=== PATIENT | female | born 1955 | race American Indian/Alaskan Native ===

== ENCOUNTER 2016-08-15 17:54 | Observation (INO) | payer MEDICAID ==
[2016-08-15 18:41] LABS: URINE MUCUS NONE SEEN (Up to 25%); URINE SQUAMOUS EPITHELIAL CELL NONE SEEN (<= 15/hpf)
[2016-08-15] MEDS ORDERED: ONDANSETRON ODT 4 MG TAB.RAPDIS ONE (18:48)
[2016-08-15 18:51] LABS: URINE APPEARANCE TURBID; URINE COLOR PALE YELLOW; URINE SPECIFIC GRAVITY > OR = 1.030 (0.001-1.035)
[2016-08-15 18:52] LABS: URINE BILIRUBIN NEGATIVE (NEGATIVE); URINE BLOOD 50 Ery/uL (2+) (NEGATIVE); URINE GLUCOSE 500mg/dL (2+) (NEGATIVE); URINE KETONE 10mg/dL (1+) (NEGATIVE); URINE LEUKOCYTE ESTERASE TRACE (NEGATIVE); URINE NITRITE NEGATIVE (NEGATIVE); URINE PH 5.5 (5-7); URINE PROTEIN 300mg/dL (3+) (NEG - TRACE); URINE RBC 0-5/hpf (0-5/hpf); URINE SPERM NONE SEEN; URINE UROBILINOGEN 0.2mg/dL (Normal) (NEG-1mg/dL)
[2016-08-15 19:14] LABS: ALBUMIN 4.3 g/dL (3.5-5.0); ALKALINE PHOSPHATASE 131 U/L (38-126); ALT 45 U/L (9-52); AST 28 U/L (14-36); BILIRUBIN, DIRECT 0.4 mg/dL (0.0-0.4); BILIRUBIN, TOTAL 0.6 mg/dL (0.2-1.3); BLOOD UREA NITROGEN 14 mg/dL (7-17); CALCIUM 9.5 mg/dL (8.4-10.2); CHLORIDE 101 mmol/L (98-107); CREATININE 0.5 mg/dL (0.5-1.0); EST GLOMERULAR FILTRATION RATE > 60 mL/min; LIPASE 110 U/L (23-300); POTASSIUM 3.6 mmol/L (3.5-5.1); SODIUM 139 mmol/L (137-145); TOTAL PROTEIN 8.1 g/dL (6.3-8.2)
[2016-08-15] MEDS ORDERED: MORPHINE SULFATE 4 MG/ML SYR ONE (19:14)
[2016-08-15] MEDS ORDERED: LABETALOL HCL 100 MG/20 ML VIAL IV ONE (19:14)
[2016-08-15] MEDS ORDERED: INSULIN REGULAR HUMAN 100 UNITS/ML ML ONE (19:16)
[2016-08-15 19:37] LABS: HEMATOCRIT 48.8 % (36.0-48.0); HEMOGLOBIN 15.3 g/dL (12.0-16.0); MEAN CORPUS. HGB CONCENTRATION 31.3 g/dL (32.0-36.0); MEAN CORPUSCULAR HEMOGLOBIN 27.6 pg (29.0-35.0); RED BLOOD COUNT 5.52 X 10^6uL (4.20-6.10); WHITE BLOOD COUNT 20.1 X 10^3uL (3.9-10.7)
[2016-08-15 19:38] LABS: BAND% (Manual) 0 % (0.0-1.0); BASOPHIL % (Manual) 0 % (0.0-2.0); EOSINOPHIL % (Manual) 1 % (0.0-6.0); LYMPHOCYTE % (Manual) 7 % (20.0-40.0); MONOCYTE % (Manual) 7 % (2.0-10.0); NEUTROPHIL % (Manual) 86 % (54.0-75.0); PLATELET COUNT 230 X 10^3uL (130-440)
[2016-08-15 19:39] LABS: BETA HYDROXYBUTYRATE 1.08 mmol/L (<0.40); PLATELET ESTIMATE ADEQUATE
[2016-08-15 19:40] LABS: BURR CELLS PRESENT
[2016-08-15] MEDS ORDERED: CEFTRIAXONE SODIUM 1,000 MG/10 ML VIAL ONE (19:40)
[2016-08-15] MEDS ORDERED: NORMAL SALINE 100 ML IV ONE (19:41)
[2016-08-15] MEDS ORDERED: HOME MEDICATION LIST NEEDED 1 EA EACH MISC ONE (19:45)
[2016-08-15 19:49] LABS: GLUCOSE 346 mg/dL (70-100)
--- NOTE | 2016-08-15 20:17 | ER NURSING DOCUMENTATION ---
Nurse's Notes [facility] Name:Chioma Marsh Age:60 yrs Sex:Female :1955 Arrival Date:08/15/2016 Time:17:54 Bed4 Private MD:[facility] Diagnosis:Urosepsis;Hyperglycemia;Dehydration Presentation: 08/15 18:15 Acuity: JUANITO 3 sj 18:30 Presenting complaint: Patient states: Nausea and vomiting x 2 hours. Has not attempted sj to drink fluids. Also mid-abdominal pain. Denies diarrhea. People living her household have vomiting and diarrhea. Transition of care: Home. 18:30 Method Of Arrival: Private Vehicle sj Triage Assessment: 18:33 General: Appears comfortable, well nourished, well groomed, Behavior is cooperative, sj pleasant. Pain: Complains of pain in generalized mid-abdominal Pain currently is 6 out of 10 on a pain scale. Neuro: Level of Consciousness is awake, alert, Oriented to person, place, time, event. Cardiovascular: Capillary refill < 3 seconds. Respiratory: Airway is patent Respiratory effort is even, unlabored, Respiratory pattern is regular. GI: Reports nausea, vomiting. Historical: - Allergies: No known drug Allergies; - Home Meds: 1. long acting insulin 2. short-acting insulin 3. [place] Oral - PMHx: Diabetes - IDDM; CHRONIC PAIN; kidney dysfunction; peripheral neuropathy; - PSHx: several back surgeries; three kidney surgeries; - Tetanus: < 10 years. - Ebola Screening: : Patient negative for fever greater than or equal to 101.5 degrees Fahrenheit, and additional compatible Ebola Virus Disease symptoms. Patient denies exposure to infectious person. Patient denies travel to an Ebola-affected area in the 21 days before illness onset. No symptoms or risks identified at this time. . - Immunization history: Pneumococcal vaccine is not up to date, Patient has never been vaccinated Flu Vaccine None. - Social history: Smoking status: Patient states was never smoker of tobacco. Patient/guardian denies using alcohol, marijuana. Screenin:00 Infectious Disease Risk None. Abuse screen: Denies threats or abuse. Denies injuries sj from another. Nutritional screening: denies eating a diabetic diet, ate candy this evening.. Assessment: 20:13 GI: Abdomen is obese, Abd is soft Abdomen is tender to palpation X 4 quads. Reports sj lower abdominal pain, upper abdominal pain, nausea, vomiting. 08/16 10:17 Reassessment: follow up urine results received from the lab; results called to Zachery carpio on M/S and she was aware of urine result and was preparing to contact attending physician; Diana aware that patient received rocephin IVPB in ER and she stated patient had not yet received additional antibiotics. Vital Signs: 08/15 18:15 BP 186 / 108; Pulse 115; Resp 20; Temp 98.0; Pulse Ox 95% on R/A; Weight 97.52 kg; sj Height 5 ft. 5 in. (165.10 cm); Pain 6/10; 18:40 BP 174 / 113; Pulse 112; Pulse Ox 92% ; sj 19:09 BP 179 / 109; Pulse 105; Pulse Ox 94% ; sj 19:12 BP 183 / 98; Pulse 107; Pulse Ox 93% ; sj 19:19 BP 181 / 103; Pulse 99; Pulse Ox 93% ; sj 19:50 BP 174 / 97; Pulse 99; Pulse Ox 94% ; sj 18:15 Body Mass Index 35.78 (97.52 kg, 165.10 cm) ED Course: 17:55 Patient arrived in ED. ama 17:56 [facility] is Private Physician. ama 18:22 Elza Xiao is Primary Nurse. sj 18:23 Triage completed. 18:37 Usman Rice MD is Attending Physician. 18:45 Notified ED Physician of patient's arrival and chief complaint. Dr. Rice notified. sj 18:59 Valuables Patient has correct armband on for positive identification. Bed in low sj position. Call light in reach. Side rails up X 1. Pulse Ox - RN Monitoring Only. Lights dimmed. Verbal reassurance given. Warm blanket given. 19:00 NIBP On - RN Monitoring Only. sj 19:00 Inserted peripheral IV: 22 gauge in right hand and blood collected. Oxygen Oxygen sj administration via nasal cannula @ 2L/min. 19:47 EKG done per protocol. Performed by ED Staff. sj 19:58 Juvencio Contreras MD is Admitting Physician. jm 20:19 EKG attached sj Administered Medications: 17:45 Drug: Zofran 4 mg; Route: PO; sj 19:20 Follow up: Response: Nausea is decreased sj 19:00 Drug: NS 0.9% 1000 ml; Route: IV; Rate: bolus; Site: right hand; sj 20:11 Follow up: IV Status: Completed infusion; IV Intake: 1000ml sj 19:10 Drug: morphine 4 mg; Route: IVP; Site: right hand; sj 19:57 Follow up: Response: Pain is decreased sj 19:13 Drug: Labetalol 10 mg; Route: IVP; Infused Over: 2 mins; Site: right hand; sj 19:57 Follow up: Response: Blood pressure is lowered sj 19:13 Drug: Insulin Regular Human 5 units; Route: IVP; Site: right hand; sj 20:10 Follow up: Response: No adverse reaction sj 19:17 Drug: Insulin Regular Human 5 units; Route: Sub-Q; Site: left upper arm; sj 20:11 Follow up: Response: No adverse reaction sj 19:45 Drug: Rocephin 1 grams; Route: IVPB; Site: right hand; sj 20:11 Follow up: IV Status: Completed infusion; IV Intake: 100ml Point of Care Testing: Blood Glucose: 18:35 Blood Glucose: 353 mg/dL; sj 19:30 Blood Glucose: 281 mg/dL; sj Urine Dip: 19:47 pH: 5.5; ; Specific [place]: 1.030; Ketones: Small; Glucose: Positive; Protein: sj Positive (++); Leukocytes: Trace; Nitrite: Negative ; Blood: Moderate (++); Bilirubin: Negative ; Urobilinogen: Normal Ranges: Intake: 20:11 IV: 1000ml; Total: 1000ml. sj 20:11 IV: 100ml; Total: 1100ml. Outcome: 19:58 Decision to Admit by Provider. fernando 20:17 Admitted to Med/surg accompanied by nurse, with oxygen. sj 20:17 Condition: improved 20:17 Report given to Dinh SCHMID 20:17 Instructed on need to admit 20:18 Patient left the ED. Signatures: Lisa Ruff, RN Usman Poe MD MD jm Averdick, Andrew, Elza Rocha
--- NOTE | 2016-08-15 20:17 | ER PHYSICIAN DOCUMENTATION ---
Physician Documentation [facility] Name:Chioma Marsh Age:60 yrs Sex:Female :1955 Arrival Date:08/15/2016 Time:17:54 Bed4 Private MD:[facility] ED PhysicianUsman Rice Disposition: 08/15/16 19:58 Admit ordered for Juvencio Contreras. Preliminary diagnosis are Urosepsis, Hyperglycemia, Dehydration. - Bed requested for Medical/Surgical. - Condition is Fair. - Problem is new. - Symptoms have improved. 23 HR OBS Yes HPI: 08/15 19:32 This 60 yrs old Unknown Female presents to ER via Private Vehicle with complaints of jm Nausea/Vomiting. 19:32 The patient presents to the emergency department with nausea, with vomiting, with jm associated abdominal pain, of the abdomen diffusely. Onset: The symptom(s)/episode began/occurred yesterday, and became worse today. Possible causes: unknown. Associated signs and symptoms: Pertinent positives: vomiting. Severity of symptoms: in the emergency department the symptoms are unchanged. The patient has experienced similar episodes in the past. The patient has not recently seen a physician. 60 yo F w hx of uncontrolled DM here for elevated sugars, abd pain, and vomiting. Pt feels awful. . Historical: - Allergies: No known drug Allergies; - Home Meds: 1. long acting insulin 2. short-acting insulin 3. [place] Oral - PMHx: Diabetes - IDDM; CHRONIC PAIN; kidney dysfunction; peripheral neuropathy; - PSHx: several back surgeries; three kidney surgeries; - Tetanus: < 10 years. - Ebola Screening: : Patient negative for fever greater than or equal to 101.5 degrees Fahrenheit, and additional compatible Ebola Virus Disease symptoms. Patient denies exposure to infectious person. Patient denies travel to an Ebola-affected area in the 21 days before illness onset. No symptoms or risks identified at this time. . - Immunization history: Pneumococcal vaccine is not up to date, Patient has never been vaccinated Flu Vaccine None. - Social history: Smoking status: Patient states was never smoker of tobacco. Patient/guardian denies using alcohol, marijuana. ROS: 19:33 Constitutional: Negative for fatigue, malaise. jm 19:33 ENT: Negative for sinus congestion, sinus pain, sore throat. 19:33 Neck: Negative for tenderness, bony tenderness. 19:33 Cardiovascular: Negative for chest pain. 19:33 Respiratory: Negative for cough, shortness of breath. 19:33 Abdomen/GI: Positive for abdominal pain, nausea, vomiting, Negative for diarrhea. 19:33 Back: Negative for injury or acute deformity, decreased range of motion. 19:33 : Positive for urinary symptoms, pelvic pain. 19:33 Skin: Negative for rash. 19:33 Neuro: Positive for gait disturbance, weakness. 19:33 Psych: Negative for anxiety, depression, drug dependence, alcohol dependence. 19:33 All other systems are negative. Exam: 19:34 Constitutional: The patient appears alert, awake, obese. jm 19:34 Eyes: Periorbital structures: appear normal, Extraocular movements: no acute changes. 19:34 ENT: Mouth: Oral mucosa: dry. 19:34 Cardiovascular: Rate: tachycardic, Rhythm: regular. 19:34 Respiratory: Respirations: normal, Breath sounds: are normal. 19:34 Abdomen/GI: Bowel sounds: normal, Palpation: moderate abdominal tenderness, in all quadrants. 19:34 Back: pain, that is very mild, CVA tenderness, that is mild, is noted bilaterally. 19:34 : CVA tenderness, that is mild, Bladder: tenderness, that is mild. 19:34 Skin: Appearance: Color: pink, no rash present. 19:34 Neuro: Mentation: is normal, Memory: is normal. 19:34 Psych: Behavior/mood is pleasant, cooperative, Affect is calm. Vital Signs: 18:15 BP 186 / 108; Pulse 115; Resp 20; Temp 98.0; Pulse Ox 95% on R/A; Weight 97.52 kg; sj Height 5 ft. 5 in. (165.10 cm); Pain 6/10; 18:40 BP 174 / 113; Pulse 112; Pulse Ox 92% ; sj 19:09 BP 179 / 109; Pulse 105; Pulse Ox 94% ; sj 19:12 BP 183 / 98; Pulse 107; Pulse Ox 93% ; sj 19:19 BP 181 / 103; Pulse 99; Pulse Ox 93% ; sj 19:50 BP 174 / 97; Pulse 99; Pulse Ox 94% ; sj 18:15 Body Mass Index 35.78 (97.52 kg, 165.10 cm) MDM: 18:37 Patient medically screened. fernando 19:35 Differential diagnosis: viral gastroenteritis, DKA, sepsis. Data reviewed: vital signs, jm nurses notes. 19:45 Data reviewed: lab test result(s), EKG, and as a result, I will admit patient. fernando Counseling: I had a detailed discussion with the patient and/or guardian regarding: the historical points, exam findings, and any diagnostic results supporting the discharge/admit diagnosis, lab results, the need for further work-up and treatment in the hospital. Medication response: The patient's symptoms have improved, zofran. Physician consultation: Juvencio Contreras MD regarding admission, and will see patient tomorrow. Admission orders: after a detailed discussion of the patient's condition and case, the admit orders are written by me. 19:57 ED course: Pt w urosepsis based on SIRS criteria. Pt given Rocephin and IVF. DR. fernando Noland agrees on admission and will see in the AM. . 20:19 EKG attached 08/15 18:54 Order name: UA W/ MICRO -CULTURE IF IND; Complete Time: 18:56 [facility] 08/15 19:18 Order name: BASIC METABOLIC PANEL [facility] 08/15 19:18 Order name: HEPATIC PANEL [facility] 08/15 19:18 Order name: LIPASE [facility] 08/15 19:40 Order name: BETA HYDROXYBUTYRATE [facility] 08/15 19:42 Order name: CBC W/ MANUAL DIFFERENTIAL [facility] 08/15 18:57 Order name: Pulse Ox Continuous; Complete Time: 19:52 08/15 19:58 Order name: Accucheck; Complete Time: 20:12 08/15 20:15 Order name: EKG - 12 Lead; Complete Time: 20:15 Dispensed Medications: 17:45 Drug: Zofran 4 mg; Route: PO; sj 19:20 Follow up: Response: Nausea is decreased sj 19:00 Drug: NS 0.9% 1000 ml; Route: IV; Rate: bolus; Site: right hand; sj 20:11 Follow up: IV Status: Completed infusion; IV Intake: 1000ml sj 19:10 Drug: morphine 4 mg; Route: IVP; Site: right hand; sj 19:57 Follow up: Response: Pain is decreased sj 19:13 Drug: Labetalol 10 mg; Route: IVP; Infused Over: 2 mins; Site: right hand; sj 19:57 Follow up: Response: Blood pressure is lowered sj 19:13 Drug: Insulin Regular Human 5 units; Route: IVP; Site: right hand; sj 20:10 Follow up: Response: No adverse reaction sj 19:17 Drug: Insulin Regular Human 5 units; Route: Sub-Q; Site: left upper arm; sj 20:11 Follow up: Response: No adverse reaction sj 19:45 Drug: Rocephin 1 grams; Route: IVPB; Site: right hand; sj 20:11 Follow up: IV Status: Completed infusion; IV Intake: 100ml Point of Care Testing: Blood Glucose: 18:35 Blood Glucose: 353 mg/dL; sj 19:30 Blood Glucose: 281 mg/dL; sj Urine Dip: 19:47 pH: 5.5; ; Specific [place]: 1.030; Ketones: Small; Glucose: Positive; Protein: sj Positive (++); Leukocytes: Trace; Nitrite: Negative ; Blood: Moderate (++); Bilirubin: Negative ; Urobilinogen: Normal Ranges: Critical Glucose Levels:Adult <50 mg/dl or >400 mg/dl <40 mg/dl or >180 mg/dl Signatures: Usman Rice MD MD jm Janzen, Sarah
[2016-08-15] MEDS: MORPHINE SULFATE 4 MG/ML SYR IV PRN (20:53)
[2016-08-15] MEDS: INSULIN LISPRO 100 UNIT/ML ML SUBCUT SCH (20:53)
[2016-08-15] MEDS: ONDANSETRON HCL 4 MG/2 ML VIAL IV PRN (20:54)
[2016-08-15] MEDS: POTASSIUM CHLORIDE/NS 1,000 ML IV SCH (20:54)
[2016-08-16] MEDS: ONDANSETRON HCL 4 MG/2 ML VIAL IV PRN ×3 (03:48→17:00)
[2016-08-16] MEDS: INSULIN LISPRO 100 UNIT/ML ML SUBCUT SCH ×4 (06:11→20:57)
[2016-08-16 06:41] LABS: BLOOD UREA NITROGEN 12 mg/dL (7-17); CALCIUM 8.3 mg/dL (8.4-10.2); CHLORIDE 104 mmol/L (98-107); CREATININE 0.5 mg/dL (0.5-1.0); EST GLOMERULAR FILTRATION RATE > 60 mL/min; POTASSIUM 3.8 mmol/L (3.5-5.1); SODIUM 139 mmol/L (137-145)
[2016-08-16 06:44] LABS: GLUCOSE 278 mg/dL (70-100)
[2016-08-16] MEDS: POTASSIUM CHLORIDE/NS 1,000 ML IV SCH ×2 (06:48→17:00)
[2016-08-16] MEDS: MORPHINE SULFATE 4 MG/ML SYR IV PRN (06:48)
[2016-08-16 06:50] LABS: BASOPHILS 0.1 % (0.0-2.0); EOSINOPHILS 0.7 % (0.0-6.0); EOSINOPHILS# 0.1 X 10^3uL (0.0-0.4); HEMATOCRIT 42.3 % (36.0-48.0); HEMOGLOBIN 14.1 g/dL (12.0-16.0); LYMPHOCYTES 4.3 % (20.0-40.0); LYMPHOCYTES# 0.5 X 10^3uL (0.8-3.8); MEAN CORPUS. HGB CONCENTRATION 33.3 g/dL (32.0-36.0); MEAN CORPUSCULAR HEMOGLOBIN 27.3 pg (29.0-35.0); MEAN PLATELET VOLUME 9.1 fL (7.4-10.4); MONOCYTES 2.1 % (2.0-10.0); MONOCYTES# 0.3 X 10^3uL (0.2-1.0); NEUTROPHILS# 11.5 X 10^3uL (2.6-6.7); PLATELET COUNT 268 X 10^3uL (130-440); RED BLOOD COUNT 5.16 X 10^6uL (4.20-6.10); RED CELL DISTRIBUTION WIDTH 13.4 % (11.5-14.5); WHITE BLOOD COUNT 12.4 X 10^3uL (3.9-10.7)
[2016-08-16 07:04] LABS: NEUTROPHILS 92.8 % (54.0-75.0)
[2016-08-16] MEDS: ACETAMINOPHEN 325 MG TABLET PO PRN (08:43)
[2016-08-16] MEDS: metFORMIN 500 MG TABLET PO SCH ×2 (11:49→20:59)
[2016-08-16] MEDS ORDERED: CEFTRIAXONE SODIUM 1,000 MG in NORMAL SALINE MINI-BAG+ 100 ML IV SCH (18:00)
[2016-08-16] MEDS ORDERED: CEFTRIAXONE SODIUM 1,000 MG/10 ML VIAL IV SCH (18:00)
[2016-08-16] MEDS: INSULIN GLARGINE,HUM.REC.ANLOG 100 UNITS/ML ML SUBCUT SCH (20:55)
[2016-08-16] MEDS: GABAPENTIN 300 MG CAPSULE PO SCH (20:57)
[2016-08-16] MEDS ORDERED: GABAPENTIN 100 MG CAPSULE PO SCH (21:00)
[2016-08-17] MEDS ORDERED: MAG-AL PLUS XS SUSP 30 ML UDC ONE (12:06)
[2016-08-17] MEDS ORDERED: MAG-AL PLUS XS SUSP 30 ML UDC PO PRN (12:23)
[2016-08-17 12:25] LABS: BLOOD UREA NITROGEN 6 mg/dL (7-17); CALCIUM 8.5 mg/dL (8.4-10.2); CHLORIDE 106 mmol/L (98-107); CREATININE 0.6 mg/dL (0.5-1.0); EST GLOMERULAR FILTRATION RATE > 60 mL/min; GLUCOSE 162 mg/dL (70-100); POTASSIUM 4.2 mmol/L (3.5-5.1); SODIUM 141 mmol/L (137-145)
[2016-08-17 12:30] LABS: BASOPHILS 0.4 % (0.0-2.0); EOSINOPHILS 4.6 % (0.0-6.0); EOSINOPHILS# 0.3 X 10^3uL (0.0-0.4); HEMATOCRIT 42.3 % (36.0-48.0); HEMOGLOBIN 14.1 g/dL (12.0-16.0); LYMPHOCYTES 21.5 % (20.0-40.0); LYMPHOCYTES# 1.4 X 10^3uL (0.8-3.8); MEAN CELL VOLUME 82.6 fL (84.0-102.0); MEAN CORPUS. HGB CONCENTRATION 33.3 g/dL (32.0-36.0); MEAN CORPUSCULAR HEMOGLOBIN 27.5 pg (29.0-35.0); MEAN PLATELET VOLUME 9.6 fL (7.4-10.4); MONOCYTES 8.6 % (2.0-10.0); MONOCYTES# 0.6 X 10^3uL (0.2-1.0); NEUTROPHILS# 4.2 X 10^3uL (2.6-6.7); PLATELET COUNT 266 X 10^3uL (130-440); RED BLOOD COUNT 5.12 X 10^6uL (4.20-6.10); RED CELL DISTRIBUTION WIDTH 13.7 % (11.5-14.5); WHITE BLOOD COUNT 6.5 X 10^3uL (3.9-10.7)
[2016-08-17 12:38] LABS: NEUTROPHILS 64.9 % (54.0-75.0)
[2016-08-17] MEDS: INSULIN LISPRO 100 UNIT/ML ML SUBCUT SCH ×4 (12:43→21:57)
[2016-08-17] MEDS: metFORMIN 500 MG TABLET PO SCH ×2 (12:43→21:07)
[2016-08-17] MEDS ORDERED: ONDANSETRON ODT 4 MG TAB.RAPDIS PO PRN (14:12)
--- NOTE | 2016-08-17 14:21 | PROGRESS NOTE: IM APSO ---
Assessment and Plan - Date of Encounter Date of Encounter: 08/17/16 (1) Pyelonephritis Status: Acute Assessment and plan: Clinically improved on IV rocephin. Will transition to PO Keflex to day and likely DC home tomorrow if remains stable. There was question of a possible kidney stone such as a staghorn as possible cause of UTI. She has responded clinically to this rx so will defer further w/u on stones as OP. Current Visit: Yes (2) Diabetes Status: Chronic Assessment and plan: Will cont current meds of metformin and insulin, 35 Lantus at hs and lispro on sliding scale. Current Visit: Yes - Time Spent With Patient Total time spent with greater than 50% in coordination of care (as documented) at patient's floor/unit and/or counseling patient: Greater than 35 minutes IM: PN Subjective General: fatigue, anxiety, depression, pain (chronic pain), fever, chills, no good appetite HEENT: no headache, no sore throat Cardiovascular: no chest pain Respiratory: no cough, no SOB Gastrointestinal: nausea, no abdominal pain, no vomiting, no diarrhea Genitourinary: no dysuria, no flank pain Musculoskeletal: pain Integumentary: no rashes Neurological: no numbness, no limb weakness IM: PN Objective Exam - I&O/Vital Signs Vital Signs: Last Vital Signs Temp 37.7 C H 08/16/16 23:00 Pulse 91 H 08/16/16 23:00 Resp 22 08/16/16 23:00 BP 154/70 08/16/16 23:00 Pulse Ox 90 08/16/16 23:00 Oxygen Flow Rate 1 Oxygen Delivery Method Nasal Cannula - Constitutional General appearance: Present: cooperative, obese. Absent: acute distress - Head Head exam: Present: normal inspection, normocephalic - Eye Eye exam: Present: EOMI, PERRL. Absent: scleral icterus Pupils: Present: PERRL. Absent: irregular - ENT ENT exam: Present: mucous membranes moist, normal external ear exam - Neck Neck exam: Present: normal inspection - Respiratory Respiratory exam: Absent: respiratory distress - GI/Abdominal GI/Abdominal exam: Absent: distended - Rectal Rectal exam: Present: deferred - Neurological Exam Neurological exam: Present: alert, oriented X3 - Psychiatric Psychiatric exam: Present: normal affect, normal mood - Skin Skin exam: Present: intact - Lab Labs: Laboratory Last Values WBC 6.5 X 10^3uL (3.9-10.7) 08/17/16 05:40 RBC 5.12 X 10^6uL (4.20-6.10) 08/17/16 05:40 Hgb 14.1 g/dL (12.0-16.0) 08/17/16 05:40 Hct 42.3 % (36.0-48.0) 08/17/16 05:40 MCV 82.6 fL (84.0-102.0) L 08/17/16 05:40 MCH 27.5 pg (29.0-35.0) L 08/17/16 05:40 MCHC 33.3 g/dL (32.0-36.0) 08/17/16 05:40 RDW 13.7 % (11.5-14.5) 08/17/16 05:40 Plt Count 266 X 10^3uL (130-440) 08/17/16 05:40 MPV 9.6 fL (7.4-10.4) 08/17/16 05:40 Total Counted 100 08/15/16 18:55 Neutrophils % 64.9 % (54.0-75.0) 08/17/16 05:40 Neutrophils % (Manual) 86 % (54.0-75.0) H 08/15/16 18:55 Band Neuts % (Manual) 0 % (0.0-1.0) 08/15/16 18:55 Lymphocytes % 21.5 % (20.0-40.0) 08/17/16 05:40 Lymphocytes % (Manual) 7 % (20.0-40.0) L 08/15/16 18:55 Atypical Lymphs % (Man) 0 % 08/15/16 18:55 Monocytes % (Manual) 7 % (2.0-10.0) 08/15/16 18:55 Eosinophils % 4.6 % (0.0-6.0) 08/17/16 05:40 Eosinophils % (Manual) 1 % (0.0-6.0) 08/15/16 18:55 Basophils % 0.4 % (0.0-2.0) 08/17/16 05:40 Basophils % (Manual) 0 % (0.0-2.0) 08/15/16 18:55 Neutrophils # 4.2 X 10^3uL (2.6-6.7) 08/17/16 05:40 Lymphocytes # 1.4 X 10^3uL (0.8-3.8) 08/17/16 05:40 Monocytes 8.6 % (2.0-10.0) 08/17/16 05:40 Monocytes # 0.6 X 10^3uL (0.2-1.0) 08/17/16 05:40 Eosinophils # 0.3 X 10^3uL (0.0-0.4) 08/17/16 05:40 Basophils # 0.0 X 10^3uL (0.0-0.1) 08/17/16 05:40 Platelet Estimate Adequate 08/15/16 18:55 Hypochromic-Microcytic 10-19% of cells 08/15/16 18:55 Anisocytosis 10-19% of cells 08/15/16 18:55 Kerri Cells Present 08/15/16 18:55 Sodium 141 mmol/L (137-145) 08/17/16 05:40 Potassium 4.2 mmol/L (3.5-5.1) 08/17/16 05:40 Chloride 106 mmol/L (98-107) 08/17/16 05:40 Carbon Dioxide 24 mmol/L (22-30) 08/17/16 05:40 BUN 6 mg/dL (7-17) L 08/17/16 05:40 Creatinine 0.6 mg/dL (0.5-1.0) 08/17/16 05:40 GFR Calculation > 60 mL/min 08/17/16 05:40 Glucose 162 mg/dL (70-100) H 08/17/16 05:40 Calcium 8.5 mg/dL (8.4-10.2) 08/17/16 05:40 Total Bilirubin 0.6 mg/dL (0.2-1.3) 08/15/16 18:55 Direct Bilirubin 0.4 mg/dL (0.0-0.4) 08/15/16 18:55 AST 28 U/L (14-36) 08/15/16 18:55 ALT 45 U/L (9-52) 08/15/16 18:55 Alkaline Phosphatase 131 U/L (38-126) H 08/15/16 18:55 Total Protein 8.1 g/dL (6.3-8.2) 08/15/16 18:55 Albumin 4.3 g/dL (3.5-5.0) 08/15/16 18:55 Lipase 110 U/L (23-300) 08/15/16 18:55 Beta-Hydroxybutyrate/Acetoacetate 1.08 mmol/L (<0.40) H 08/15/16 18:55 Urine Color Pale yellow 08/15/16 18:30 Urine Appearance Turbid A 08/15/16 18:30 Urine pH 5.5 (5-7) 08/15/16 18:30 Ur Specific [place] > or = 1.030 (0.001-1.035) 08/15/16 18:30 Urine Protein 300mg/dl (3+) (NEG - TRACE) A 08/15/16 18:30 Urine Ketones 10mg/dl (1+) (NEGATIVE) A 08/15/16 18:30 Urine Blood 50 marci/ul (2+) (NEGATIVE) A 08/15/16 18:30 Urine Nitrate Negative (NEGATIVE) 08/15/16 18:30 Urine Bilirubin Negative (NEGATIVE) 08/15/16 18:30 Urine Urobilinogen 0.2mg/dl (normal) (NEG-1mg/dL) 08/15/16 18:30 Ur Leukocyte Esterase Trace (NEGATIVE) 08/15/16 18:30 Urine RBC 0-5/hpf (0-5/hpf) 08/15/16 18:30 Urine WBC 5-10/hpf (0-4/hpf) A 08/15/16 18:30 Ur Squamous Epith Cells None seen (<= 15/hpf) 08/15/16 18:30 Urine Bacteria 20-50 organisms/hpf (<10/hpf) A 08/15/16 18:30 Urine Mucus None seen (Up to 25%) 08/15/16 18:30 Urine Sperm None seen 08/15/16 18:30 Urine Glucose 500mg/dl (2+) (NEGATIVE) A 08/15/16 18:30 Quality Questions - VTE Prophylaxis Assessment VTE Present on Admission?: No Patient at risk for venous thromboembolism?: Yes VTE Risk Level: High Risk VTE Medical Contraindication: Treatment not indicated (2) Diabetes Qualifiers: Diabetes mellitus type: type 2 Diabetes mellitus complication status: with neurologic complications Diabetes mellitus complication detail: with polyneuropathy Diabetes mellitus intermediate insulin use: with emt intermediate use Qualified Code(s): E11.42 - Type 2 diabetes mellitus with diabetic polyneuropathy; Z79.4 - 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
[2016-08-17] MEDS ORDERED: GABAPENTIN 100 MG CAPSULE PO ONE ×2 (15:00→15:02)
[2016-08-17] MEDS ORDERED: ONDANSETRON ODT 4 MG TAB.RAPDIS ONE (15:02)
[2016-08-17] MEDS: ACETAMINOPHEN 325 MG TABLET PO PRN (16:11)
[2016-08-17] MEDS: CEPHALEXIN MONOHYDRATE 250 MG CAPSULE PO SCH ×2 (16:11→21:07)
[2016-08-17] MEDS ORDERED: CEPHALEXIN MONOHYDRATE 250 MG CAPSULE PO ONE (16:15)
[2016-08-17] MEDS: POTASSIUM CHLORIDE/NS 1,000 ML IV SCH (18:46)
[2016-08-17] MEDS: GABAPENTIN 300 MG CAPSULE PO SCH (21:08)
[2016-08-17] MEDS: INSULIN GLARGINE,HUM.REC.ANLOG 100 UNITS/ML ML SUBCUT SCH (21:08)
[2016-08-17] MEDS ORDERED: IBUPROFEN 600 MG TABLET PO PRN (21:20)
[2016-08-18] MEDS: POTASSIUM CHLORIDE/NS 1,000 ML IV SCH (05:42)
[2016-08-18 06:36] LABS: BASOPHILS 0.3 % (0.0-2.0); EOSINOPHILS 5.5 % (0.0-6.0); EOSINOPHILS# 0.3 X 10^3uL (0.0-0.4); HEMATOCRIT 41.2 % (36.0-48.0); HEMOGLOBIN 13.5 g/dL (12.0-16.0); LYMPHOCYTES 28.5 % (20.0-40.0); LYMPHOCYTES# 1.5 X 10^3uL (0.8-3.8); MEAN CELL VOLUME 82.2 fL (84.0-102.0); MEAN CORPUS. HGB CONCENTRATION 32.8 g/dL (32.0-36.0); MEAN CORPUSCULAR HEMOGLOBIN 26.9 pg (29.0-35.0); MEAN PLATELET VOLUME 8.4 fL (7.4-10.4); MONOCYTES 12.2 % (2.0-10.0); MONOCYTES# 0.7 X 10^3uL (0.2-1.0); NEUTROPHILS 53.5 % (54.0-75.0); NEUTROPHILS# 2.9 X 10^3uL (2.6-6.7); PLATELET COUNT 262 X 10^3uL (130-440); RED BLOOD COUNT 5.01 X 10^6uL (4.20-6.10); RED CELL DISTRIBUTION WIDTH 13.8 % (11.5-14.5); WHITE BLOOD COUNT 5.4 X 10^3uL (3.9-10.7)
[2016-08-18 06:42] LABS: BLOOD UREA NITROGEN 5 mg/dL (7-17); CALCIUM 8.8 mg/dL (8.4-10.2); CHLORIDE 108 mmol/L (98-107); CREATININE 0.5 mg/dL (0.5-1.0); EST GLOMERULAR FILTRATION RATE > 60 mL/min; GLUCOSE 106 mg/dL (70-100); POTASSIUM 3.7 mmol/L (3.5-5.1); SODIUM 142 mmol/L (137-145)
[2016-08-18] MEDS: CEPHALEXIN MONOHYDRATE 250 MG CAPSULE PO SCH (08:30)
[2016-08-18] MEDS: ACETAMINOPHEN 325 MG TABLET PO PRN (08:30)
[2016-08-18] MEDS: metFORMIN 500 MG TABLET PO SCH (08:31)
[2016-08-18] MEDS: INSULIN LISPRO 100 UNIT/ML ML SUBCUT SCH ×2 (08:31→12:28)
[2016-08-18 11:20] VITALS: BP 152/85; PULSE 84; RESP 16; TEMP 98.5; O2SAT 94
--- NOTE | 2016-08-18 12:04 | DC SUMMARY: IM Note ---
Discharge Summary: IM/Peds Provider: Date of Admission: 08/15/16 Admitting Provider: ABIOLA WILD MD Attending Provider: ABIOLA WILD MD Discharging Provider: EFREN MORILLO DO Primary Care Provider: Discharge Date: 08/18/16 - Diagnosis (1) Pyelonephritis Status: Acute (2) Diabetes Status: Chronic Qualifiers: Diabetes mellitus type: type 2 Diabetes mellitus complication status: with neurologic complications Diabetes mellitus complication detail: with polyneuropathy Diabetes mellitus [employer] insulin use: with chcf use Qualified Code(s): E11.42 - Type 2 diabetes mellitus with diabetic polyneuropathy; Z79.4 - [employer] (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 Hospital Course: Pt responded well to iv then po antibiotic. Diabetic control was less than optimal but pt has been noncompliant pre-admission. Has also been requiring zofran for nausea but that much better today. Her chronic pain persists. Likely multiple etiologies for that. Has history of PMR and steroid use though states off prednisone for 2-3 months. Would defer steroid rx to [facility] as pt sx fairly well controlled on ibuprofen in hospital and steroid would certainly impact diabetic control. Will cont with keflex tid for 7 more days. Also cont with gabapentin 300 at hs and will defer dosage adjustments to [facility]. - Time Spent with Patient Total time spent providing and/or coordinating discharge services: Time with patient DS: Greater than 30 minutes Discharge - Patient/Caregiver Discharge Instructions Activity Level: regular to tolerance. Diet: Diabetic per [facility] recommendations. Follow up: [facility],Provider [MD] - 7 Days Overall discharge status: patient is progressing back to baseline Print Language: LAO Home Medications: Ibuprofen [Ibuprofen*] 800 mg PO TID #90 tablet Cephalexin Monohydrate [Keflex*] 500 mg PO TID@0800,1600,2200 #21 capsule Gabapentin [Neurontin*] 300 mg PO HS #30 capsule Disposition: HOME, SELF-CARE 1. Medical reason for no anticoagulation order on D/C?: Treatment not indicated 2. Medical reason for no anticoag overlap on D/C?: Treatment not indicated Discharge Summary Data - Medication History Medication History: Home Medications HYDROcodone/APAP 5/325 MG [HYDROCODONE/APAP 5mg/325mg*] 1 - 2 tab PO BID PRN 05/20 metFORMIN [Glucophage*] 1,000 mg PO BEFORE BRKFST/DINN 05/17/14 Gabapentin [Neurontin*] 100 mg PO BID 01/30/16 Insulin Glargine,Hum.rec.anlog [Lantus*] 28 units SUBCUT DAILY #300 ml 02/01/16 Insulin Lispro [Humalog*] 0 unit SUBCUT ACHS ml 02/01/16 Inpatient Medications 08/16/16 11:00 metFORMIN [Glucophage] 1,000 mg PO BID 08/16/16 21:00 Gabapentin [Neurontin] 300 mg PO HS Insulin Glargine,Hum.rec.anlog [Lantus] 35 units SUBCUT HS 08/17/16 12:23 Mag-Al Plus Xs Susp [Maalox Liquid] 30 ml PO Q6H PRN 08/17/16 14:12 Ondansetron Odt [Zofran Odt] 4 mg PO Q3H PRN 08/17/16 16:00 Cephalexin Monohydrate [Keflex] 500 mg PO TID@0800,1600,2200 08/17/16 21:20 Ibuprofen [Motrin] 600 mg PO Q6H PRN Procedures and tests throughout hospitalization: Completed Lab Orders 08/17/16 05:40 BMP [BASIC METABOLIC PANEL] [CHEM] AMDRAW CBC AUTO DIF, MDIF/RMOR IF IND [HEM] AMDRAW 08/18/16 06:00 BMP [BASIC METABOLIC PANEL] [CHEM] AMDRAW CBC AUTO DIF, MDIF/RMOR IF IND [HEM] AMDRAW Pending Orders 08/16/16 10:06 Diabetic Teaching Consult Once 08/16/16 11:00 metFORMIN [Glucophage] 1,000 mg PO BID 08/16/16 21:00 Gabapentin [Neurontin] 300 mg PO HS Insulin Glargine,Hum.rec.anlog [Lantus] 35 units SUBCUT HS 08/17/16 12:23 Mag-Al Plus Xs Susp [Maalox Liquid] 30 ml PO Q6H PRN 08/17/16 14:12 Ondansetron Odt [Zofran Odt] 4 mg PO Q3H PRN 08/17/16 16:00 Cephalexin Monohydrate [Keflex] 500 mg PO TID@0800,1600,2200 08/17/16 21:20 Ibuprofen [Motrin] 600 mg PO Q6H PRN Labs on day of discharge: Labs from last 24 hours 08/18/16 08/17/16 06:00 05:40 WBC 5.4 6.5 RBC 5.01 5.12 Hgb 13.5 14.1 Hct 41.2 42.3 MCV 82.2 L 82.6 L MCH 26.9 L 27.5 L MCHC 32.8 33.3 RDW 13.8 13.7 Plt Count 262 266 MPV 8.4 9.6 Neutrophils % 53.5 L 64.9 Lymphocytes % 28.5 21.5 Eosinophils % 5.5 4.6 Basophils % 0.3 0.4 Neutrophils # 2.9 4.2 Lymphocytes # 1.5 1.4 Monocytes 12.2 H 8.6 Monocytes # 0.7 0.6 Eosinophils # 0.3 0.3 Basophils # 0.0 0.0 Sodium 142 141 Potassium 3.7 4.2 Chloride 108 H 106 Carbon Dioxide 24 24 BUN 5 L 6 L Creatinine 0.5 0.6 GFR Calculation > 60 > 60 Glucose 106 H 162 H Calcium 8.8 8.5 IM: Discharge Physical Exam - I&O/Vital Signs I&O: Intake & Output 08/17/16 08/18/16 08/18/16 21:59 05:59 13:59 Intake Total 1580 1788 Output Total 100 Balance 1480 1788 Intake: IV 950 1238 Right Hand 950 1238 Oral 630 550 Output: Emesis 100 Other: Voiding Method Toilet Toilet Toilet # Voids 4 3 Vital Signs: Last Vital Signs Temp 36.9 C 08/18/16 11:00 Pulse 84 08/18/16 11:00 Resp 16 08/18/16 11:00 BP 152/85 08/18/16 11:00 Pulse Ox 94 08/18/16 11:00 Oxygen Flow Rate 1 Oxygen Delivery Method Room Air - Constitutional General appearance: Present: cooperative, obese. Absent: acute distress - Head Head exam: Present: normal inspection, normocephalic - Eye Eye exam: Present: EOMI, PERRL. Absent: scleral icterus Pupils: Present: PERRL. Absent: irregular - ENT ENT exam: Present: mucous membranes moist, normal external ear exam - Neck Neck exam: Present: normal inspection - Respiratory Respiratory exam: Absent: respiratory distress - GI/Abdominal GI/Abdominal exam: Absent: distended - Rectal Rectal exam: Present: deferred - Neurological Exam Neurological exam: Present: alert, normal gait, oriented X3 - Psychiatric Psychiatric exam: Present: normal affect, normal mood - Skin Skin exam: Present: intact - Allied Health Notes Allied health notes reviewed: nursing, social work
--- NOTE | 2016-08-18 19:29 | HISTORY & PHYSICAL ---
DATE OF ADMISSION: 08/15/16 ATTENDING PHYSICIAN: Juvencio Contreras MD CHIEF COMPLAINT: Nausea and vomiting. HISTORY OF PRESENT ILLNESS: Patient is a 66-year-old female with type 2 diabetes mellitus on insulin, poorly controlled, who presents with acute onset of nausea and vomiting with associated right sided abdominal pain and right flank pain for the last day. Symptoms worsened today. She states that she has had a history of pyelonephritis and kidney stones in the past. Blood sugars typically run in the 250-300 range and she has been unable to bring blood sugars down despite the use of insulin. On further questions she appears to have fairly generalized knowledge of diabetes and how to manage diabetes with insulin. She does not do glucoscans on a regular basis, and it is not clear whether she has been doing her insulin on a regular basis. She denies any dysuria, urinary frequency, urgency or hesitancy. She does have the right flank pain as noted above. ALLERGIES: None. MEDICATIONS Lantus 22 units subcutaneous q.h.s. Humalog insulin 10 units t.i.d. with meals. Gabapentin 100 mg p.o. q.h.s. Metformin 1000 mg p.o. b.i.d. Hydrocodone 5/325 mg 1-2 tabs p.o. b.i.d. PRN. PAST MEDICAL HISTORY 1. Type 2 diabetes mellitus, currently on insulin, diagnosed approximately 10 years ago. 2. Morbid obesity. 3. Chronic pain syndrome related to back pain, hip pain and left shoulder pain. 4. Chronic renal failure. 5. Peripheral neuropathy. 6. Three kidney stone surgeries related to a staghorn kidney stones. 7. History of pyelonephritis per patient. 8. No previous back surgeries. 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 No alcohol. No smoking. FAMILY HISTORY: Father at 50 of myocardial infarction. Mother at 80 with myocardial infarction. Brother at 70 of organ failure. Sister at 40 with complications related to diabetes. REVIEW OF SYSTEMS: No heart, lung, liver, thyroid, seizures, peptic ulcer disease, skin, allergy or bleeding disorders. Patient denies any lumbar spine surgery or cervical lumbar spine problems although previous notes have indicated an element of cervical and lumbar spinal degenerative disk disease. PREVENTATIVE HEALTH: Patient declines flu shots and Pneumovax. PHYSICAL EXAMINATION GENERAL: Morbidly obese female, NAD, alert and oriented x3. HEENT: EOMI. Pupils are equally round. Normal conjunctivae. No coryza. Pharynx not injected. Midline structures. NECK: No lymphadenopathy. No thyromegaly. No carotid bruits. Neck supple. CHEST: Clear. No rales, rhonchi or wheezes. Good breath sounds and symmetry throughout. COR: RRR without murmurs, gallops, rubs or clicks. No jugular venous distention. No ectopy. ABDOMEN: Marked right mid abdominal pain and deep palpation with guarding. Also right flank pain on percussion. No obvious hepatosplenomegaly, masses, although exam is difficult. Bowel sounds present. LOWER EXTREMITIES: No edema. Good peripheral pulses. Sensation present. NEUROLOGIC: Nonfocal otherwise. LABORATORY DATA: WBC 20.1 which has dropped down to 12.4 this morning. Hemoglobin and hematocrit 15.3/48.8, platelets 230,000, 86% neutrophils, 0% bands, 7% lymphocytes. On admission, sodium 139, potassium 3.6, chloride 101, CO2 22, BUN 14, creatinine 0.5, glucose 346 which has come down to 278 this morning. Calcium 9.5, total bilirubin 0.6, AST 28, ALT 45, alkaline phosphatase 131, total protein 8.1, albumin 4.3, lipase 110, beta hydroxybutyrate/ acetoacetate 1.08. Urinalysis with specific gravity 1.30, turbid, 3+ protein, 1+ ketones, 2+ blood , trace leukocyte esterase, 2+ glucose. Micro 0-5 RBCs, 5-10 WBCs, 20-50 bacteria. Preliminary urine cultures showing gram negative bacillus. ASSESSMENT 1. Right pyelonephritis. 2. Dehydration. 3. Type 2 diabetes mellitus, on insulin, poor control and questionable compliance. 4. Morbid obesity. 5. Chronic pain syndrome. PLAN 1. Rocephin 1 gram IV q.24 hours. 2. Urine cultures pending. 3. Increase Lantus insulin to 35 units subcutaneous q.h.s. and this dose may need to be increased in the future. 4. Humalog insulin sliding scale per protocol. 5. Metformin 1000 mg p.o. b.i.d. 6. Increase Gabapentin to 300 mg p.o. q.h.s. 7. Will hold off on prescribing narcotic pain medications for now. 8. IV hydration. [facility]
== END 2016-08-18 12:16 | disposition home or self-care (01) ==
LOC: ER 17:54 → IN 20:03
PROVIDERS: ADMIT Family Medicine; ATTEND Family Medicine
DX: N10 Acute pyelonephritis (principal); E11.42 Type 2 diabetes mellitus with diabetic polyneuropathy; E11.22 Type 2 diabetes mellitus with diabetic chronic kidney disease; Z79.4 Long term (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; E66.8 Other obesity; G89.4 Chronic pain syndrome; Z79.899 Other long term (current) drug therapy
CPT/HCPCS: 36415; 80048; 80076; 81001; 82010; 83036; 83690; 85007; 85025; 85027; 87077; 87086; 87186; 93005; 96361; 96365; 96372; 96374; 96375; 96376; 99285; G0108; G0378; J0696; J1815; J2270; J2405; J3480

== ENCOUNTER 2016-10-18 16:22 | Emergency (ER) | payer MEDICAID ==
[2016-10-18] MEDS ORDERED: INSULIN REGULAR HUMAN 100 UNITS/ML ML ONE (17:05)
[2016-10-18 17:32] LABS: BLOOD UREA NITROGEN 13 mg/dL (7-17); CALCIUM 9.3 mg/dL (8.4-10.2); CHLORIDE 99 mmol/L (98-107); CREATININE 0.7 mg/dL (0.5-1.0); EST GLOMERULAR FILTRATION RATE > 60 mL/min; INFLUENZA A/B INF A & B NEGATIVE; POTASSIUM 3.8 mmol/L (3.5-5.1); SODIUM 135 mmol/L (137-145)
[2016-10-18 17:34] LABS: GLUCOSE 311 mg/dL (70-100)
[2016-10-18] MEDS ORDERED: KETOROLAC TROMETHAMINE 30 MG/ML VIAL ONE (18:13)
--- NOTE | 2016-10-18 18:21 | ER NURSING DOCUMENTATION ---
Nurse's Notes [facility] Name:Chioma Marsh Age:61 yrs Sex:Female :1955 Arrival Date:10/18/2016 Time:16:22 Bed1 Private MD:Seraifn Glass Diagnosis:Acute Low Back Pain;Dehydration;Hyperglycemia Presentation: 10/18 16:34 Presenting complaint: Patient states: Back pain and "numbers are off". Transition of lp care: Home. Notified ED Physician of Dr. Hansen notified. 16:34 Method Of Arrival: Private Vehicle lp 16:34 Acuity: JUANITO 3 lp Triage Assessment: 16:36 General: Appears in no apparent distress, Behavior is appropriate for age. Pain: lp Complains of pain in lumbar area, left low back, right low back, right leg and left leg. Musculoskeletal: Circulation, motion, and sensation intact Capillary refill. Historical: - Allergies: No known drug Allergies; - Home Meds: 1. Aneta 5-325 mg oral tab 1 tab every 6 hours for Pain 2. short-acting insulin 3. long acting insulin - PMHx: DIABETES - IDDM; CHRONIC PAIN; kidney dysfunction; peripheral neuropathy; Urosepsis (August 15, 2016); Hyperglycemia (August 15, 2016); Dehydration (August 15, 2016); - PSHx: several back surgeries; three kidney surgeries; - Tetanus: < 10 years. - Ebola Screening: : Patient negative for fever greater than or equal to 101.5 degrees Fahrenheit, and additional compatible Ebola Virus Disease symptoms. Patient denies exposure to infectious person. Patient denies travel to an Ebola-affected area in the 21 days before illness onset. . - Immunization history: Unable to Obtain. - Social history: Smoking status: unknown if patient ever smoked tobacco. Screenin:37 Infectious Disease Risk None. Abuse screen: Denies threats or abuse. Denies injuries lp from another. Nutritional screening: No deficits noted. Assessment: 16:37 Neuro: No deficits noted. lp Vital Signs: 16:37 BP 181 / 89; Pulse 104; Resp 16; Temp 98.3(O); Pulse Ox 94% on R/A; Weight 99.79 kg; lp Height 5 ft. 5 in. (165.10 cm); Pain 9/10; 17:24 BP 177 / 102; Pulse 98; Resp 16; Pulse Ox 94% on R/A; lp 18:13 BP 166 / 85; Pulse 90; Resp 16; Pulse Ox 92% on R/A; lp 16:37 Body Mass Index 36.61 (99.79 kg, 165.10 cm) lp [place] Coma Score: 16:40 Eye Response: spontaneous(4). Verbal Response: oriented(5). Motor Response: obeys cd commands(6). Total: 15. ED Course: 16:23 Patient arrived in ED. lm3 16:23 Serafin Glass MD is Private Physician. lm3 16:34 Cecily Loza, SHARMAINE is Primary Nurse. lp 16:35 Triage completed. lp 16:[address] Hansen notified. lp 16:38 Valuables Remains with patient Patient has correct armband on for positive lp identification. Placed in gown. Bed in low position. Call light in reach. 16:50 Pollo Hansen MD is Attending Physician. cd 17:16 Inserted peripheral IV: 20 gauge in left antecubital area. lp 18:01 Serafin Glass MD is Referral Physician. cd Administered Medications: 17:00 Drug: Insulin Regular Human 10 units; Route: Sub-Q; Site: abdomen; lp 18:08 Follow up: Response: No adverse reaction lp 17:15 Drug: NS 0.9% 500 ml; Route: IV; Rate: bolus; Infused Over: 1 hrs; Site: left lp antecubital; 18:07 Follow up: Response: No adverse reaction; No change in condition; IV Status: Completed lp infusion; IV Intake: 500ml 18:08 Drug: Toradol 15 mg; Route: IVP; Site: left antecubital; lp 18:13 Follow up: Response: No adverse reaction; No change in condition lp Point of Care Testing: Blood Glucose: 16:37 Blood Glucose: 316 mg/dL; lp 18:07 Blood Glucose: 241 mg/dL; lp Urine Dip: 17:52 pH: 6.0; ; Specific [place]: 1.005; Ketones: Negative; Glucose: Positive; Protein: lp Negative; Leukocytes: Negative; Nitrite: Negative ; Blood: Hemolyzed Trace; Bilirubin: Negative ; Urobilinogen: Normal Ranges: Intake: 18:07 IV: 500ml; Total: 500ml. lp Outcome: 18:02 Discharge ordered by . cd 18:09 Discharged to home lp 18:09 Condition: good 18:09 Instructed on discharge instructions, follow up and referral plans. medication usage. 18:20 Patient left the ED. lp 10/19 10:27 Discharge F/U Call: Unable to reach: non-working number la Signatures: Cecily Loza, RN RN Pollo Jackson MD MD cd Alexander, Linda la McKibbon-Moore, Lisa lm3
--- NOTE | 2016-10-18 18:21 | ER PHYSICIAN DOCUMENTATION ---
Physician Documentation [facility] Name:Chioma Marsh Age:61 yrs Sex:Female :1955 Arrival Date:10/18/2016 Time:16:22 Bed1 Private MD:Serafin Glass ED, Chris Disposition: 10/18 18:10 Chart complete. cd Disposition: 10/18/16 18:02 Discharged to Home/Self Care. Impression: Acute Low Back Pain, Dehydration, Hyperglycemia. - Condition is Good. - Discharge Instructions: BACK PAIN (Acute or Chronic), DEHYDRATION (6y-Adult), DIABETIC HYPERGLYCEMIA, BACK CARE TIPS. - Prescriptions for gabapentin 300 mg Oral capsule - take 1 capsule by ORAL route 3 times per day; 30 capsule. - Medical Reconciliation form form. - Follow up: Serafin Glass MD; When: 2 - 3 days; Reason: Recheck today's complaints, Continuance of care. - Problem is an acute exacerbation. - Symptoms have improved. - Notes: Drink 2 - 3 quarts of water every day. Check your Glucose tonight before dinner....it was 241 when you left the ER. Take Gabapentin 300mg by mouth every 8 hours for pain. Follow up with Dr. Glass in a couple days for recheck. HPI: 16:30 This 61 yrs old Female presents to ER via Private Vehicle with cd complaints of Back Pain, Foot Pain, High Blood Sugar. 16:30 The patient presents with pain that is acute, that is chronic, with no known mechanism cd of injury, from lifting. The symptoms are located in the low back. Onset: The symptoms/episode began/occurred acutely, this morning. The pain does not radiate. Associated signs and symptoms: Pertinent positives: nausea, Pertinent negatives: abdominal pain, chest pain, dysuria, headache, numbness, tingling, urinary retention, vomiting, weakness. The problem was sustained at home, from a chronic condition, degenerative joint disease, Patient has a hx of IDDM and forgot to give herself her Insulin this morning. So now her Glucose was 300 at when checked.. Severity of symptoms: At their worst the symptoms were mild. Patient reports she ran out of her Hydrocodone 1 month ago and her Gabapentin 3 months ago.. Historical: - Allergies: No known drug Allergies; - Home Meds: 1. [place] 5-325 mg oral tab 1 tab every 6 hours for Pain 2. short-acting insulin 3. long acting insulin - PMHx: DIABETES - IDDM; CHRONIC PAIN; kidney dysfunction; peripheral neuropathy; Urosepsis (August 15, 2016); Hyperglycemia (August 15, 2016); Dehydration (August 15, 2016); - PSHx: several back surgeries; three kidney surgeries; - Tetanus: < 10 years. - Ebola Screening: : Patient negative for fever greater than or equal to 101.5 degrees Fahrenheit, and additional compatible Ebola Virus Disease symptoms. Patient denies exposure to infectious person. Patient denies travel to an Ebola-affected area in the 21 days before illness onset. . - Immunization history: Unable to Obtain. - Social history: Smoking status: unknown if patient ever smoked tobacco. ROS: 16:40 Neck: Negative for injury, pain, stiffness and swelling. cd Cardiovascular: Negative for chest pain, palpitations, edema and pleuritic pain. Respiratory: Negative for shortness of breath, dyspnea on exertion, cough, sputum production, wheezing, hemoptysis and pleuritic chest pain. Abdomen/GI: Negative for abdominal pain, nausea, vomiting, diarrhea, constipation, distension, melena, hematochezia and hematemesis. : Negative for injury, bleeding, discharge, dysuria, frequency, urgency and swelling. MS/Extremity: Negative for injury, deformity, edema, calf tenderness, pain or coldness. 16:40 Neuro: Negative for headache, weakness, numbness, tingling, and seizure. cd 16:40 Constitutional: Positive for body aches, fever, malaise, poor PO intake, Negative for chills. 16:40 ENT: Negative for ear pain, rhinorrhea, sinus congestion, sore throat. 16:40 Back: Positive for pain at rest, Negative for radiated pain. 16:40 All other systems are negative. Exam: Head/Face: Normocephalic, atraumatic. Eyes: Pupils equal round and reactive to light, extra-ocular motions intact. Lids and lashes normal. Conjunctiva and sclera are non-icteric and not injected. Cornea within normal limits. Periorbital areas with no swelling, redness, or edema. ENT: Nares patent. No nasal discharge, no septal abnormalities noted. Tympanic membranes are normal and external auditory canals are clear. Oropharynx with no redness, swelling, or masses, exudates, or evidence of obstruction, uvula midline. Mucous membranes dry Neck: Trachea midline, no thyromegaly or masses palpated, and no cervical lymphadenopathy. Supple, full range of motion without nuchal rigidity, or vertebral point tenderness. No Meningismus. Chest/axilla: Normal chest wall appearance and motion. Nontender with no deformity. No lesions are appreciated. Cardiovascular: Regular rate and rhythm with a normal S1 and S2. No gallops, murmurs, or rubs. Normal PMI, no JVD. No pulse deficits. Respiratory: Lungs have equal breath sounds bilaterally, clear to auscultation and percussion. No rales, rhonchi or wheezes noted. No increased work of breathing, no retractions or nasal flaring. Abdomen/GI: Soft, non-tender, with normal bowel sounds. No distension or tympany. No guarding or rebound. No evidence of tenderness throughout. Skin: Warm, dry with normal turgor. Normal color with no rashes, no lesions, and no evidence of cellulitis. 16:40 Neuro: Awake and alert, GCS 15, oriented to person, place, time, and situation. cd Cranial nerves II-XII grossly intact. Motor strength 5/5 in all extremities. Sensory grossly intact. Cerebellar exam normal. Normal gait. 16:40 Constitutional: The patient appears alert, awake, non-diaphoretic, non-toxic, well developed, well nourished, anxious, listless, obese. 16:40 Back: pain, that is moderate, of the left low back and right low back, ROM is normal, normal spinal alignment noted, CVA tenderness, is absent, is noted bilaterally, vertebral tenderness, is not appreciated. 16:40 Neuro: Sensation: is normal, Gait: is steady, Deep tendon reflexes are normal. 16:40 Abdomen/GI: Palpation: soft, Rectal exam: the exam is deferred. cd 16:40 : CVA tenderness, is absent, Rectal exam: is not applicable. Vital Signs: 16:37 BP 181 / 89; Pulse 104; Resp 16; Temp 98.3(O); Pulse Ox 94% on R/A; Weight 99.79 kg; lp Height 5 ft. 5 in. (165.10 cm); Pain 9/10; 17:24 BP 177 / 102; Pulse 98; Resp 16; Pulse Ox 94% on R/A; lp 18:13 BP 166 / 85; Pulse 90; Resp 16; Pulse Ox 92% on R/A; lp 16:37 Body Mass Index 36.61 (99.79 kg, 165.10 cm) lp Larry Coma Score: 16:40 Eye Response: spontaneous(4). Verbal Response: oriented(5). Motor Response: obeys cd commands(6). Total: 15. MDM: 16:40 Differential diagnosis: chronic back pain, Fatigue Pyelonephritis sprain. Data cd reviewed: vital signs, nurses notes, old medical records, and as a result, I will continue to observe the patient, administer IV fluids, NS bolus, NS maintenence, prescribe pain medication, Toradol. 16:50 Patient medically screened. cd 16:50 Data interpreted: Pulse oximetry: on room air is 92 %. Interpretation: normal. cd 18:00 Counseling: I had a detailed discussion with the patient and/or guardian regarding: the cd historical points, exam findings, and any diagnostic results supporting the discharge/admit diagnosis, lab results, the need for outpatient follow up, for a recheck, with the patient's primary care provider, to return to the emergency department if symptoms worsen or persist or if there are any questions or concerns that arise at home. Response to treatment: the patient's symptoms have markedly improved after treatment, the patient's condition has returned to base line, patient is well hydrated. and as a result, I will discharge patient. 10/18 17:33 Order name: INFLUENZA A/B; Complete Time: 17:42 EDMS 10/18 17:41 Interpretation: Normal. cd 10/18 17:35 Order name: BASIC METABOLIC PANEL; Complete Time: 17:42 EDMS 10/18 17:42 Interpretation: Normal Except: GLUCOSE 311; Hyperglycemia. cd 10/18 16:50 Order name: Fluid Challenge; Complete Time: 17:16 cd 10/18 18:01 Order name: Accucheck; Complete Time: 18:08 cd Dispensed Medications: 17:00 Drug: Insulin Regular Human 10 units; Route: Sub-Q; Site: abdomen; lp 18:08 Follow up: Response: No adverse reaction lp 17:15 Drug: NS 0.9% 500 ml; Route: IV; Rate: bolus; Infused Over: 1 hrs; Site: left lp antecubital; 18:07 Follow up: Response: No adverse reaction; No change in condition; IV Status: Completed lp infusion; IV Intake: 500ml 18:08 Drug: Toradol 15 mg; Route: IVP; Site: left antecubital; lp 18:13 Follow up: Response: No adverse reaction; No change in condition lp Point of Care Testing: Blood Glucose: 16:37 Blood Glucose: 316 mg/dL; lp 18:07 Blood Glucose: 241 mg/dL; lp Urine Dip: 17:52 pH: 6.0; ; Specific [place]: 1.005; Ketones: Negative; Glucose: Positive; Protein: lp Negative; Leukocytes: Negative; Nitrite: Negative ; Blood: Hemolyzed Trace; Bilirubin: Negative ; Urobilinogen: Normal Ranges: Critical Glucose Levels:Adult <50 mg/dl or >400 mg/dl <40 mg/dl or >180 mg/dl Signatures: Cecily Loza RN RN lp Pollo Hansen MD MD cd
== END 2016-10-18 18:20 | disposition home or self-care (01) ==
LOC: ER 16:22
DX: M54.5 Low back pain (principal); E86.0 Dehydration; E11.65 Type 2 diabetes mellitus with hyperglycemia; M79.1 Myalgia; R50.9 Fever, unspecified; R53.81 Other malaise; Z79.899 Other long term (current) drug therapy; Z79.4 Long term (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
CPT/HCPCS: 80048; 87449; 96361; 96372; 96374; 99283; J1815; J1885

== ENCOUNTER 2016-12-26 18:07 | Emergency (ER) | payer MEDICAID ==
[2016-12-26 18:38] LABS: BASOPHIL# 0.1 X 10^3uL (0.0-0.1); BASOPHILS 0.8 % (0.0-2.0); EOSINOPHILS 2.9 % (0.0-6.0); EOSINOPHILS# 0.3 X 10^3uL (0.0-0.4); HEMATOCRIT 39.7 % (36.0-48.0); HEMOGLOBIN 13.5 g/dL (12.0-16.0); LYMPHOCYTES# 2.3 X 10^3uL (0.8-3.8); MEAN CELL VOLUME 83.2 fL (80.0-100.0); MEAN CORPUSCULAR HEMOGLOBIN 28.3 pg (29.0-35.0); MEAN PLATELET VOLUME 8.5 fL (7.4-10.4); MONOCYTES 5.1 % (2.0-10.0); MONOCYTES# 0.5 X 10^3uL (0.2-1.0); NEUTROPHILS 68.2 % (54.0-75.0); NEUTROPHILS# 6.9 X 10^3uL (2.6-6.7); PLATELET COUNT 276 X 10^3uL (130-440); RED BLOOD COUNT 4.77 X 10^6uL (4.20-6.10); WHITE BLOOD COUNT 10.1 X 10^3uL (3.9-10.7)
[2016-12-26 18:49] LABS: BLOOD UREA NITROGEN 14 mg/dL (7-17); CALCIUM 9.4 mg/dL (8.4-10.2); CHLORIDE 106 mmol/L (98-107); EST GLOMERULAR FILTRATION RATE > 60 mL/min; POTASSIUM 3.7 mmol/L (3.5-5.1); SODIUM 141 mmol/L (137-145)
[2016-12-26 18:52] LABS: GLUCOSE 225 mg/dL (70-100)
--- NOTE | 2016-12-26 19:06 | ER NURSING DOCUMENTATION ---
Nurse's Notes [facility] Name:Chioma Marsh Age:61 yrs Sex:Female :1955 Arrival Date:12/26/2016 Time:18:07 Bed4 Private MD:Juvencio Contreras Diagnosis:Pedal Edema-: Bilateral Presentation: 12/26 18:10 Acuity: JUANITO 3 st 18:20 Presenting complaint: Patient states: pt went on a long walk 4 days ago and has had st foot and leg swelling and pain since. Transition of care: Home. 18:20 Method Of Arrival: Private Vehicle st Triage Assessment: 18:23 General: Appears in no apparent distress, Behavior is cooperative. Pain: Complains of st pain in right foot, left foot, right leg and left leg Pain currently is 8 out of 10 on a pain scale. Pain began 4-5 days ago. Cardiovascular: Capillary refill < 3 seconds Heart tones present Edema is 2+ to left knee, left midcalf, left ankle, left foot, right knee, right midcalf and right foot. Respiratory: Breath sounds are clear bilaterally. GI: No deficits noted. Historical: - Allergies: No known drug Allergies; - Home Meds: 1. [place] 5-325 mg oral tab 1 tab every 6 hours for Pain 2. short-acting insulin 3. long acting insulin - PMHx: DIABETES - IDDM; CHRONIC PAIN; kidney dysfunction; peripheral neuropathy; - PSHx: several back surgeries; three kidney surgeries; - Tetanus: < 10 years. - Ebola Screening: : Patient denies exposure to infectious person. Patient denies travel to an Ebola-affected area in the 21 days before illness onset. . - Immunization history: Pneumococcal vaccine is up to date, Flu Vaccine < 1 year. - Social history: Smoking status: Patient states was never smoker of tobacco. Patient/guardian denies using alcohol, marijuana. Screenin:25 Infectious Disease Risk None. Abuse screen: Denies threats or abuse. Denies injuries st from another. pt feels safe at home. Nutritional screening: No deficits noted. Assessment: 18:30 See Triage Assessment done by same RN. mk2 Vital Signs: 18:24 BP 172 / 91; Pulse 88; Temp 98.2; Pulse Ox 94% on R/A; Weight 95.25 kg; Height [address] in[address] (165.10 cm); Pain 8/10; 19:03 BP 156 / 64; Pulse 79; Resp 15; Pulse Ox 96% on R/A; Pain 5/10; mk2 18:24 Body Mass Index 34.95 (95.25 kg, 165.10 cm) st [place] Coma Score: 18:30 Eye Response: spontaneous(4). Verbal Response: oriented(5). Motor Response: obeys cd commands(6). Total: 15. ED Course: 18:08 Patient arrived in ED. ama 18:09 Juvencio Contreras MD is Private Physician. ama 18:10 Lily Alberto RN is Primary Nurse. st 18:[address] 18:25 Valuables Remains with patient Patient has correct armband on for positive st identification. Placed in gown. Bed in low position. Pulse Ox - RN Monitoring Only. Warm blanket given. 18:30 Primary Nurse role handed off by Lily Alberto RN mk2 18:30 Hawa Tucker RN is Primary Nurse. 2 18:30 Labs drawn. (by ED staff). 2 18:43 Pollo Hansen MD is Attending Physician. cd 18:46 Juvencio Contreras MD is Referral Physician. cd Administered Medications: No medications were administered Outcome: 18:47 Discharge ordered by . cd 19:03 Discharged to home ambulatory. 2 19:03 Condition: improved 19:03 Discharge instructions given to patient, Instructed on discharge instructions, follow up and referral plans. medication usage, Prescriptions given X 2. 19:05 Patient left the ED. 2 12/27 12:23 Discharge F/U Call: Unable to reach: non-working number tg Signatures: Jose Cain RN Lily Batres RN RN st Daley, Chris, MD MD cd Kruger, Meg, RN RN mk2 Averdick, Andrew, Reg Reg ama
--- NOTE | 2016-12-26 19:06 | ER PHYSICIAN DOCUMENTATION ---
Physician Documentation [facility] Name:Chioma Marsh Age:61 yrs Sex:Female :1955 Arrival Date:12/26/2016 Time:18:07 Bed4 Private MD:Juvencio Contreras ED, Chris Disposition: 12/26/16 18:47 Discharged to Home/Self Care. Impression: Pedal Edema - : Bilateral. - Condition is Good. - Discharge Instructions: PERIPHERAL EDEMA, Bilateral. - Prescriptions for Lasix 20 mg Oral - take 1 tablet by ORAL route once daily; 3 tablet. Potassium Chloride 20 meq Oral - take 1 packet by ORAL route once daily 1 packet in 6 (six) ounces of water or juice; Take after meal; 3 packet. - Medical Reconciliation form form. - Follow up: Juvencio Contreras MD; When: 4- 6 days; Reason: Recheck today's complaints, Continuance of care. - Problem is new. - Symptoms are unchanged. - Notes: Take Lasix 20mg by mouth every day for 3 days.... Take Potassium Chloride Packet dissolved in water or juice once daily by mouthin the morning for three days only. Elevate your legs as much as possible for the next 3 days. Follow up with Dr. Contreras in 4 - 6 days for recheck. HPI: 12/26 18:15 This 61 yrs old Female presents to ER via Private Vehicle with cd complaints of Leg Swelling - BOTH LEGS. 18:15 The patient presents with swelling. The complaints affect the Bilateral lower legs. cd Context: The problem was sustained at home, resulted from walking over 5 miles 4 - 5 days ago, the patient can fully bear weight, the patient is able to ambulate, without difficulty. Onset: The symptom(s)/episode began/occurred acutely, 4 day(s) ago. Modifying factors: The symptoms are alleviated by nothing. the symptoms are aggravated by nothing. Associated signs and symptoms: The patient has no apparent associated signs or symptoms. Treatment prior to arrival includes: no previous treatment. Severity of symptoms: At their worst the symptoms were mild, in the emergency department the symptoms are unchanged. The patient has not experienced similar symptoms in the past. Historical: - Allergies: No known drug Allergies; - Home Meds: 1. [place] 5-325 mg oral tab 1 tab every 6 hours for Pain 2. short-acting insulin 3. long acting insulin - PMHx: DIABETES - IDDM; CHRONIC PAIN; kidney dysfunction; peripheral neuropathy; - PSHx: several back surgeries; three kidney surgeries; - Tetanus: < 10 years. - Ebola Screening: : Patient denies exposure to infectious person. Patient denies travel to an Ebola-affected area in the 21 days before illness onset. . - Immunization history: Pneumococcal vaccine is up to date, Flu Vaccine < 1 year. - Social history: Smoking status: Patient states was never smoker of tobacco. Patient/guardian denies using alcohol, marijuana. ROS: 18:30 Constitutional: Negative for fever, chills, rigors and weight loss. cd Cardiovascular: Negative for chest pain, palpitations, edema and pleuritic pain. Respiratory: Negative for shortness of breath, dyspnea on exertion, cough, sputum production, wheezing, hemoptysis and pleuritic chest pain. Abdomen/GI: Negative for abdominal pain, nausea, vomiting, diarrhea, constipation, distension, melena, hematochezia and hematemesis. Back: Negative for injury, pain or muscle spasms. : Negative for injury, bleeding, discharge, dysuria, frequency, urgency and swelling. 18:30 Neuro: Negative for headache, weakness, numbness, tingling, and seizure. cd 18:30 MS/extremity: Positive for swelling, of the Both lower extremities, Negative for decreased range of motion, erythema, paresthesias. 18:30 All other systems are negative. Exam: Eyes: Pupils equal round and reactive to light, extra-ocular motions intact. Lids and lashes normal. Conjunctiva and sclera are non-icteric and not injected. Cornea within normal limits. Periorbital areas with no swelling, redness, or edema. ENT: Nares patent. No nasal discharge, no septal abnormalities noted. Tympanic membranes are normal and external auditory canals are clear. Oropharynx with no redness, swelling, or masses, exudates, or evidence of obstruction, uvula midline. Mucous membranes moist. Neck: Trachea midline, no thyromegaly or masses palpated, and no cervical lymphadenopathy. Supple, full range of motion without nuchal rigidity, or vertebral point tenderness. No Meningismus. Chest/axilla: Normal chest wall appearance and motion. Nontender with no deformity. No lesions are appreciated. Cardiovascular: Regular rate and rhythm with a normal S1 and S2. No gallops, murmurs, or rubs. Normal PMI, no JVD. No pulse deficits. Respiratory: Lungs have equal breath sounds bilaterally, clear to auscultation and percussion. No rales, rhonchi or wheezes noted. No increased work of breathing, no retractions or nasal flaring. Abdomen/GI: Soft, non-tender, with normal bowel sounds. No distension or tympany. No guarding or rebound. No evidence of tenderness throughout. Back: No spinal tenderness. No costovertebral tenderness. Full range of motion. Skin: Warm, dry with normal turgor. Normal color with no rashes, no lesions, and no evidence of cellulitis. 18:30 Neuro: Awake and alert, GCS 15, oriented to person, place, time, and situation. cd Cranial nerves II-XII grossly intact. Motor strength 5/5 in all extremities. Sensory grossly intact. Cerebellar exam normal. Normal gait. 18:30 Constitutional: The patient appears alert, awake, non-diaphoretic, non-toxic, well developed, well nourished, obese. 18:30 Musculoskeletal/extremity: Extremities: grossly normal except: noted in the Bilateral lower extremities: ROM: no acute changes, Circulation is intact in all extremities. Weight bearing: able to fully bear weight, without difficulty, DVT Exam: no pain, no tenderness, negative Homans' sign noted on exam, no appreciated bluish discoloration, no erythema, no increased warmth, swelling, that is mild, of the right leg, of the left leg. Vital Signs: 18:24 BP 172 / 91; Pulse 88; Temp 98.2; Pulse Ox 94% on R/A; Weight 95.25 kg; Height [address] in[address] (165.10 cm); Pain 8/10; 19:03 BP 156 / 64; Pulse 79; Resp 15; Pulse Ox 96% on R/A; Pain 5/10; mk2 18:24 Body Mass Index 34.95 (95.25 kg, 165.10 cm) st [place] Coma Score: 18:30 Eye Response: spontaneous(4). Verbal Response: oriented(5). Motor Response: obeys cd commands(6). Total: 15. MDM: 18:43 Patient medically screened. cd 18:45 Differential diagnosis: Pedal edema, Bilateral DVT, Cellulitis. Data reviewed: vital cd signs, nurses notes, old medical records, lab test result(s), and as a result, I will discharge patient. Data interpreted: Pulse oximetry: on is 96 %. Interpretation: normal. Counseling: I had a detailed discussion with the patient and/or guardian regarding: the historical points, exam findings, and any diagnostic results supporting the discharge/admit diagnosis, lab results, the need for outpatient follow up, for a recheck, with the patient's primary care provider, to return to the emergency department if symptoms worsen or persist or if there are any questions or concerns that arise at home. 12/26 18:42 Order name: CBC AUTO DIF, MDIF/RMOR IF IND; Complete Time: 18:53 EDMS 06 18:43 Interpretation: Normal. cd 12/26 18:53 Order name: BASIC METABOLIC PANEL; Complete Time: 18:53 EDMS 12/26 18:53 Interpretation: Normal Except: GLUCOSE 225; Hyperglycemia. cd Dispensed Medications: No medications were administered Signatures: Lily Alberto, RN Pollo Medina MD MD cd Kruger, Meg RN RN mk2
== END 2016-12-26 19:06 | disposition home or self-care (01) ==
LOC: ER 18:07
DX: R60.0 Localized edema (principal); E10.9 Type 1 diabetes mellitus without complications; Z79.899 Other long term (current) drug therapy
CPT/HCPCS: 80048; 85025; 99283

== ENCOUNTER 2017-01-08 22:28 | Emergency (ER) | payer MEDICAID ==
[2017-01-08 23:23] LABS: BLOOD UREA NITROGEN 8 mg/dL (7-17); CALCIUM 10.1 mg/dL (8.4-10.2); CHLORIDE 104 mmol/L (98-107); EST GLOMERULAR FILTRATION RATE > 60 mL/min; GLUCOSE 152 mg/dL (70-100); POTASSIUM 3.7 mmol/L (3.5-5.1); SODIUM 141 mmol/L (137-145)
[2017-01-08 23:26] LABS: BASOPHIL# 0.1 X 10^3uL (0.0-0.1); BASOPHILS 0.7 % (0.0-2.0); EOSINOPHILS 2.8 % (0.0-6.0); EOSINOPHILS# 0.3 X 10^3uL (0.0-0.4); HEMATOCRIT 39.9 % (36.0-48.0); HEMOGLOBIN 13.7 g/dL (12.0-16.0); LYMPHOCYTES 20.4 % (20.0-40.0); LYMPHOCYTES# 2.4 X 10^3uL (0.8-3.8); MEAN CELL VOLUME 82.6 fL (80.0-100.0); MEAN CORPUS. HGB CONCENTRATION 34.2 g/dL (32.0-36.0); MEAN CORPUSCULAR HEMOGLOBIN 28.3 pg (29.0-35.0); MEAN PLATELET VOLUME 8.8 fL (7.4-10.4); MONOCYTES# 0.6 X 10^3uL (0.2-1.0); NEUTROPHILS# 8.5 X 10^3uL (2.6-6.7); PLATELET COUNT 291 X 10^3uL (130-440); RED BLOOD COUNT 4.83 X 10^6uL (4.20-6.10); RED CELL DISTRIBUTION WIDTH 13.1 % (11.5-14.5); WHITE BLOOD COUNT 11.9 X 10^3uL (3.9-10.7)
[2017-01-08 23:33] LABS: NEUTROPHILS 71.1 % (54.0-75.0)
--- NOTE | 2017-01-08 23:50 | ER PHYSICIAN DOCUMENTATION ---
Physician Documentation [facility] Name:Chioma Marsh Age:61 yrs Sex:Female :1955 Arrival Date:01/08/2017 Time:22:28 Bed4 Private MD:Juvencio Contreras EDjorge aPatrick Disposition: 01/08/17 23:15 Discharged to Home/Self Care. Impression: Diabetes Mellitus, Secondary w/o Complication, Dependent Edema. - Condition is Good. - Discharge Instructions: PERIPHERAL EDEMA, Bilateral. - Medical Reconciliation form form. - Follow up: Juvencio Contreras MD; When: 1 week; Reason: Continuance of care. - Problem is an ongoing problem. - Symptoms have improved. HPI: 01/08 22:55 This 61 yrs old Female presents to ER via Walk In with complaints of ne Leg Swelling. 22:55 x one month because of homelessness, worried about kidney failure, wants to live at ne hospital, . Onset: The symptom(s)/episode began/occurred at an unknown time. The patient has experienced similar episodes in the past, chronically. Historical: - Allergies: No known drug Allergies; - Home Meds: 1. gabapentin oral 2. levamir 3. Novolin R Sub-Q 4. [place] Oral - PMHx: Diabetes - IDDM; - Tetanus: > 10 years. - Ebola Screening: : Patient denies exposure to infectious person. Patient denies travel to an Ebola-affected area in the 21 days before illness onset. . - Immunization history: Flu Vaccine < 1 year. - Social history: Smoking status: Patient states was never smoker of tobacco. Patient/guardian denies using alcohol. - Code Status:: Full code. ROS: 22:56 Constitutional: Negative for fever, chills, and weight loss. sc Eyes: Negative for injury, pain, redness, and discharge. ENT: Negative for injury, pain, and discharge. Neck: Negative for injury, pain, and swelling. Cardiovascular: Negative for chest pain, palpitations, and edema. Respiratory: Negative for shortness of breath, cough, wheezing, and pleuritic chest pain. Abdomen/GI: Negative for abdominal pain, nausea, vomiting, diarrhea, and constipation. 22:56 Back: Negative for injury and pain. sc 22:56 Constitutional: Negative for chills, fatigue, fever. 22:56 Cardiovascular: Negative for chest pain, orthopnea. 22:56 Respiratory: Negative for cough. 22:56 Abdomen/GI: Negative for abdominal pain, nausea, vomiting. 22:56 MS/extremity: Positive for swelling. Exam: Constitutional: This is a well developed, well nourished patient who is awake, alert, and in no acute distress. Head/Face: Normocephalic, atraumatic. Eyes: Pupils equal round and reactive to light, extra-ocular motions intact. Lids and lashes normal. Conjunctiva and sclera are non-icteric and not injected. Cornea within normal limits. Periorbital areas with no swelling, redness, or edema. ENT: Nares patent. No nasal discharge, no septal abnormalities noted. Tympanic membranes are normal and external auditory canals are clear. Oropharynx with no redness, swelling, or masses, exudates, or evidence of obstruction, uvula midline. Mucous membranes moist. Neck: Trachea midline, no thyromegaly or masses palpated, and no cervical lymphadenopathy. Supple, full range of motion without nuchal rigidity, or vertebral point tenderness. No meningismus. Chest/axilla: Normal chest wall appearance and motion. Nontender with no deformity. No lesions are appreciated. Cardiovascular: Regular rate and rhythm with a normal S1 and S2. No gallops, murmurs, or rubs. Normal PMI, no JVD. No pulse deficits. Respiratory: Lungs have equal breath sounds bilaterally, clear to auscultation and percussion. No rales, rhonchi or wheezes noted. No increased work of breathing, no retractions or nasal flaring. Abdomen/GI: Soft, non-tender, with normal bowel sounds. No distension or tympany. No guarding or rebound. No evidence of tenderness throughout. 22:56 Back: No spinal tenderness. No costovertebral tenderness. Full range of motion. sc 22:56 Constitutional: The patient appears in no acute distress, alert, awake, comfortable. 22:56 Cardiovascular: Rate: normal, Rhythm: regular. 22:56 Respiratory: the patient does not display signs of respiratory distress, Respirations: normal, Breath sounds: are normal. 22:56 Abdomen/GI: Bowel sounds: normal, Palpation: abdomen is soft and non-tender, Rectal exam: Vital Signs: 22:42 BP 168 / 90; Pulse 100; Resp 20; Temp 97.9; Pulse Ox 94% on R/A; Weight 90.72 kg; lb Height 5 ft. 5 in. (165.10 cm); Pain 9/10; 22:42 Body Mass Index 33.28 (90.72 kg, 165.10 cm) lb MDM: 22:36 Patient medically screened. ne 22:57 Differential Diagnosis mild pedal edema, homelessness, accusing police of dropping her sc off in page, PD called to ER. NO sxs schizophrenia but simplistic thinking and manipulation attempts, suspect developmental delay. Data reviewed: vital signs, nurses notes, old medical records, lab test result(s), and as a result, I will discharge patient. Counseling: I had a detailed discussion with the patient and/or guardian regarding: the historical points, exam findings, and any diagnostic results supporting the discharge/admit diagnosis, the need for outpatient follow up, to return to the emergency department if symptoms worsen or persist or if there are any questions or concerns that arise at home. 01/09 00:53 ED course: Refuses to wear PADMA hose provided to her in ED.. ne 01/08 23:26 Order name: BASIC METABOLIC PANEL; Complete Time: 23:34 EDPA 01/08 23:34 Order name: CBC AUTO DIF, MDIF/RMOR IF IND; Complete Time: 23:34 [facility] 01/08 22:43 Order name: Urine Dip; Complete Time: 23:11 ne 01/08 22:43 Order name: FSBS; Complete Time: 23:45 ne Dispensed Medications: No medications were administered Point of Care Testing: Blood Glucose: 01/08 23:40 Blood Glucose: 136 mg/dL; em1 Urine Dip: 22:46 pH: 7.0; ; Specific [place]: 1.010; Ketones: Negative; Glucose: Negative; Protein: em1 Negative; Leukocytes: Trace; Nitrite: Negative ; Blood: Negative; Bilirubin: Negative ; Urobilinogen: Normal Ranges: Critical Glucose Levels:Adult <50 mg/dl or >400 mg/dl <40 mg/dl or >180 mg/dl Signatures: Patrick Fang MD MD sc Bollock, Lynda lb
--- NOTE | 2017-01-08 23:50 | ER NURSING DOCUMENTATION ---
Nurse's Notes [facility] Name:Chioma Marsh Age:61 yrs Sex:Female :1955 Arrival Date:01/08/2017 Time:22:28 Bed4 Private MD:Juvencio Contreras Diagnosis:Diabetes Mellitus, Secondary w/o Complication;Dependent Edema Presentation: 01/08 22:39 Presenting complaint: Patient states: c/o bilateral leg and foot swelling for 1 week lb with erythema to lower legs. Transition of care: Home. Notified ED Physician of Dr. Fang notified. 22:39 Acuity: JUANITO 3 lb 22:39 Method Of Arrival: Walk In lb Triage Assessment: 22:41 General: Appears in no apparent distress, Behavior is appropriate for age, pleasant. lb Pain: Complains of pain in right leg and left leg Pain does not radiate. Pain currently is 9 out of 10 on a pain scale. EENT: No deficits noted. Neuro: No deficits noted. Cardiovascular: No deficits noted. Respiratory: No deficits noted. GI: No deficits noted. Historical: - Allergies: No known drug Allergies; - Home Meds: 1. gabapentin oral 2. levamir 3. Novolin R Sub-Q 4. [place] Oral - PMHx: Diabetes - IDDM; - Tetanus: > 10 years. - Ebola Screening: : Patient denies exposure to infectious person. Patient denies travel to an Ebola-affected area in the 21 days before illness onset. . - Immunization history: Flu Vaccine < 1 year. - Social history: Smoking status: Patient states was never smoker of tobacco. Patient/guardian denies using alcohol. - Code Status:: Full code. Screenin:44 Infectious Disease Risk None. Abuse screen: Denies threats or abuse. Denies injuries lb from another. Nutritional screening: No deficits noted. Assessment: 22:43 See Triage Assessment done by same RN. General: Appears in no apparent distress, lb Behavior is appropriate for age. Pain: Complains of pain in right leg and left leg Pain does not radiate. Pain currently is 9 out of 10 on a pain scale. 23:45 Reassessment: pt given PADMA stockings to wear--pt refusing, states they are too tight. lb Vital Signs: 22:42 BP 168 / 90; Pulse 100; Resp 20; Temp 97.9; Pulse Ox 94% on R/A; Weight 90.72 kg; lb Height 5 ft. 5 in. (165.10 cm); Pain 9/10; 22:42 Body Mass Index 33.28 (90.72 kg, 165.10 cm) ED Course: 22:36 Patient arrived in ED. em2 22:36 Juvencio Cnotreras MD is Private Physician. em2 22:36 Patrick Fang MD is Attending Physician. nh 22:39 Gissel Ward is Primary Nurse. lb 22:40 Triage completed. lb 22:[address] Fang notified. lb 22:44 Valuables Remains with patient. lb 22:46 Urine collected. Clean catch specimen. em1 23:15 Juvencio Contreras MD is Referral Physician. nh Administered Medications: No medications were administered Point of Care Testing: Blood Glucose: 23:40 Blood Glucose: 136 mg/dL; em1 Urine Dip: 22:46 pH: 7.0; ; Specific [place]: 1.010; Ketones: Negative; Glucose: Negative; Protein: em1 Negative; Leukocytes: Trace; Nitrite: Negative ; Blood: Negative; Bilirubin: Negative ; Urobilinogen: Normal Ranges: Outcome: 23:15 Discharge ordered by . nh 23:46 Discharged to home ambulatory. 23:46 Condition: stable 23:46 Discharge Assessment: Patient awake, alert and oriented x 3. No cognitive and/or functional deficits noted. Patient verbalized understanding of disposition instructions. 23:46 Instructed on discharge instructions, follow up and referral plans. 23:50 Patient left the ED. 01/09 13:40 Prescriptions given X call received from [facility] regarding nf handwritten prescription for lasix, order was clarified with DrChew: lasix 20mg po once daily, dispense 3 Signatures: Lisa Ruff, RN RN nf Patrick Fang MD MD nh [facility], [employer] em1 [place]-reg, [facility]ura-reg em2 Gissel Ward
== END 2017-01-08 23:50 | disposition home or self-care (01) ==
LOC: ER 22:28
DX: R60.0 Localized edema (principal); E11.9 Type 2 diabetes mellitus without complications; Z79.899 Other long term (current) drug therapy; Z79.4 Long term (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; Z59.0 Homelessness
CPT/HCPCS: 36415; 80048; 85025; 99283

== ENCOUNTER 2017-01-15 17:42 | Emergency (ER) | payer MEDICAID ==
--- NOTE | 2017-01-15 18:57 | ER PHYSICIAN DOCUMENTATION ---
Physician Documentation [facility] Name:Chioma Marsh Age:61 yrs Sex:Female :1955 Arrival Date:01/15/2017 Time:17:42 Bed5 Private MD:Shelley, Provider ED Leoncio Patrick Disposition: 01/15/17 18:35 Discharged to Home/Self Care. Impression: Leg Edema. - Condition is Good. - Discharge Instructions: PERIPHERAL EDEMA, Bilateral. - Medical Reconciliation form form. - Follow up: Juvencio Contreras MD; When: As needed; Reason: Continuance of care. - Problem is an ongoing problem. - Symptoms are unchanged. HPI: 01/15 18:09 This 61 yrs old Female presents to ER via Private Vehicle with sc complaints of Leg Swelling. 18:09 The patient presents with swelling. The complaints affect the medial aspect of left sc calf and left zamora and right foot and left foot and left dorsalis pedis artery and right dorsalis pedis artery. Context: The problem was sustained at an unknown site, resulted from a repetitive motion, twisting of the extremity, the patient can fully bear weight, the patient is able to ambulate. Onset: The symptom(s)/episode began/occurred at an unknown time. and became worse today. Associated signs and symptoms: The patient has no apparent associated signs or symptoms. Historical: - Allergies: No known drug Allergies; - Home Meds: 1. [place] 5-325 mg oral tab 2 tabs every 4-6 hours for Pain 2. Lasix 20 mg oral tab 1 tab once daily 3. Levemir 4. Novolog 100 unit/mL subcutaneous soln Unknown for Type 2 Diabetes Mellitus 5. gabapentin 300 mg oral cap 2 caps 3 times per day for Neuropathic Pain 6. lisinopril 2.5 mg oral tab 1 tab once daily 7. metformin 1,000 mg oral tr24 1 tab once daily for Type 2 Diabetes Mellitus 8. Lancets - PMHx: Polymyalgia Rheumatica; Edema; Homeless; Morbid Obesity; Diabetes - IDDM; CHRONIC PAIN; Postmenopausal Bleeding; Parasthesia; - PSHx: Abdominal Surgery; - Tetanus: unknown unknown. - Ebola Screening: : Patient negative for fever greater than or equal to 101.5 degrees Fahrenheit, and additional compatible Ebola Virus Disease symptoms. Patient denies exposure to infectious person. Patient denies travel to an Ebola-affected area in the 21 days before illness onset. No symptoms or risks identified at this time. Patient negative for fever greater than or equal to 101.5 degrees Fahrenheit, and additional compatible Ebola Virus Disease symptoms. Patient denies exposure to infectious person. Patient denies travel to an Ebola-affected area in the 21 days before illness onset. . - Immunization history: Flu Vaccine unknown Unable to Obtain. - Social history: Smoking status: Patient states former smoker of tobacco. Smoking status: Patient states was never smoker of tobacco. ROS: 18:11 Constitutional: Negative for fever, chills, and weight loss. sc Eyes: Negative for injury, pain, redness, and discharge. Back: Negative for injury and pain. Skin: Negative for injury, rash, and discoloration. 18:11 Neuro: Negative for headache, weakness, numbness, tingling, and seizure. sc 18:11 MS/extremity: Positive for injury or acute deformity, pain. Exam: Constitutional: This is a well developed, well nourished patient who is awake, alert, and in no acute distress. Head/Face: Normocephalic, atraumatic. Neck: Trachea midline, no thyromegaly or masses palpated, and no cervical lymphadenopathy. Supple, full range of motion without nuchal rigidity, or vertebral point tenderness. No meningismus. Cardiovascular: Regular rate and rhythm with a normal S1 and S2. No gallops, murmurs, or rubs. Normal PMI, no JVD. No pulse deficits. Respiratory: Lungs have equal breath sounds bilaterally, clear to auscultation and percussion. No rales, rhonchi or wheezes noted. No increased work of breathing, no retractions or nasal flaring. 18:12 Skin: Warm, dry with normal turgor. Normal color with no rashes, no lesions, and no sc evidence of cellulitis. 18:12 Musculoskeletal/extremity: Extremities: grossly normal except: pain, ROM: intact in all extremities, Circulation is intact in all extremities. Sensation intact. edema much decreased from last visit Vital Signs: 17:57 BP 160 / 85; Pulse 104; Resp 16; Temp 98.4(O); Pulse Ox 94% on R/A; Pain 10/10; tg MDM: 17:55 Patient medically screened. sc 18:12 Differential diagnosis: closed fracture, contusion, tendonitis. Data reviewed: vital sc signs, nurses notes, radiologic studies, and as a result, I will continue to observe the patient. Counseling: I had a detailed discussion with the patient and/or guardian regarding: the historical points, exam findings, and any diagnostic results supporting the discharge/admit diagnosis, radiology results, the need for outpatient follow up, with the patient's primary care provider. 01/16 08:47 Order name: TIBIA/FIBULA; 2V [place] [id number] EDMS Dispensed Medications: No medications were administered Signatures: Jose Cain RN RN Cecily Borja RN RN lp Chew, Scott, MD MD sc Hofsess, Rachel
--- NOTE | 2017-01-15 18:57 | ER NURSING DOCUMENTATION ---
Nurse's Notes [facility] Name:Chioma Marsh Age:61 yrs Sex:Female :1955 Arrival Date:01/15/2017 Time:17:42 Bed5 Private MD:Shelley Provider Diagnosis:Leg Edema Presentation: 01/15 17:46 Acuity: JUANITO 3 lp 17:53 Presenting complaint: Patient states: Pt reports pain in both ankles due to increased tg activity in the past week. Pt seen in ED for lower limb swelling, has used a diuretic to decrease edema. Transition of care: patient was not received from another setting of care. 17:53 Method Of Arrival: Private Vehicle tg Triage Assessment: 17:55 General: Appears in no apparent distress, Behavior is cooperative, pleasant. Pain: tg Complains of pain in bilat ankles. Neuro: Level of Consciousness is awake, alert. Cardiovascular: Capillary refill < 3 seconds in bilateral toes. Cardiovascular: Edema is 1+ to left foot and right foot Pulses are palpable in right dorsalis pedis artery and left dorsalis pedis artery. Respiratory: Respiratory effort is even, unlabored. Derm: Skin is pink, warm & dry. Historical: - Allergies: No known drug Allergies; - Home Meds: 1. [place] 5-325 mg oral tab 2 tabs every 4-6 hours for Pain 2. Lasix 20 mg oral tab 1 tab once daily 3. Levemir 4. Novolog 100 unit/mL subcutaneous soln Unknown for Type 2 Diabetes Mellitus 5. gabapentin 300 mg oral cap 2 caps 3 times per day for Neuropathic Pain 6. lisinopril 2.5 mg oral tab 1 tab once daily 7. metformin 1,000 mg oral tr24 1 tab once daily for Type 2 Diabetes Mellitus 8. Lancets - PMHx: Polymyalgia Rheumatica; Edema; Homeless; Morbid Obesity; Diabetes - IDDM; CHRONIC PAIN; Postmenopausal Bleeding; Parasthesia; - PSHx: Abdominal Surgery; - Tetanus: unknown unknown. - Ebola Screening: : Patient negative for fever greater than or equal to 101.5 degrees Fahrenheit, and additional compatible Ebola Virus Disease symptoms. Patient denies exposure to infectious person. Patient denies travel to an Ebola-affected area in the 21 days before illness onset. No symptoms or risks identified at this time. Patient negative for fever greater than or equal to 101.5 degrees Fahrenheit, and additional compatible Ebola Virus Disease symptoms. Patient denies exposure to infectious person. Patient denies travel to an Ebola-affected area in the 21 days before illness onset. . - Immunization history: Flu Vaccine unknown Unable to Obtain. - Social history: Smoking status: Patient states former smoker of tobacco. Smoking status: Patient states was never smoker of tobacco. Screenin:58 Infectious Disease Risk Unable to Obtain. Abuse screen: Denies threats or abuse. Denies tg injuries from another. Nutritional screening: No deficits noted. Assessment: 17:58 See Triage Assessment done by same RN. Vital Signs: 17:57 BP 160 / 85; Pulse 104; Resp 16; Temp 98.4(O); Pulse Ox 94% on R/A; Pain 10/10; tg ED Course: 17:44 Patient arrived in ED. ama 17:45 Shelley, Provider is Private Physician. ama 17:46 Triage completed. lp 17:53 Jose Cain RN is Primary Nurse. tg 17:54 Patrick Fang MD is Attending Physician. ia 17:58 Arm band placed on. 17:58 Valuables Remains with patient. 18:34 Juvencio Contreras MD is Referral Physician. sc 18:40 Port Xray Completed. hz Administered Medications: No medications were administered Outcome: 18:35 Discharge ordered by . ia 18:55 Discharged to home ambulatory. 18:55 Condition: improved 18:55 Discharge Assessment: Patient awake, alert and oriented x 3. No cognitive and/or functional deficits noted. Patient verbalized understanding of disposition instructions. 18:55 Discharge instructions given to patient, Instructed on discharge instructions, follow up and referral plans. Demonstrated understanding of instructions. 18:56 Patient left the ED. Signatures: oJse Cain RN RN tg Pavlish, Lena, RN RN lp Chew, Scott, MD MD ia George Santos, Reg Reg Maria Elena Deng Betsy Salter hz
--- NOTE | 2017-01-16 07:20 | RADIOLOGY REPORT ---
Views of both lower legs demonstrates no displaced fracture, subluxation or bony destructive change. Limited views of the joints are unremarkable. Bilateral plantar calcaneal spurs are noted. IMPRESSION: Bilateral plantar calcaneal spurs. No displaced injury is identified. If clinically indicated, further evaluation and/or follow-up may be of benefit. IRMA
== END 2017-01-15 18:57 | disposition home or self-care (01) ==
LOC: ER 17:42
DX: R60.0 Localized edema (principal); E11.9 Type 2 diabetes mellitus without complications; M35.3 Polymyalgia rheumatica; Z79.899 Other long term (current) drug therapy; Z79.4 Long term (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
CPT/HCPCS: 99283